=== PATIENT | female | born 1950 | race Caucasian/White ===

== ENCOUNTER → 2019-01-20 | Outpatient (CLI) | payer MEDICARE ==
--- NOTE | 2019-01-20 14:23 | RADIOLOGY REPORT (SQ) ---
EXAM DESCRIPTION: MRI CERVICAL SPINE WITHOUT COMPLETED DATE/TIME: 01/20/2019 12:08 pm REASON FOR STUDY: CERVICALGIA M54.2 CERVICALGIA COMPARISON: None. TECHNIQUE: Sagittal and Axial imaging includes T1, T2, STIR and gradient echo sequences. LIMITATIONS: None. FINDINGS: ALIGNMENT: Normal. VERTEBRAE: Intact. BONE MARROW: Normal. No marrow replacement or reactive changes. DISCS: Disc spaces are narrowed at C5-6 and C6-7 with marginal osteophytes. HARDWARE: None in the spine. CORD AND BASE OF BRAIN: Normal in size and signal intensity. SOFT TISSUES: No soft tissue masses. C1-C2: No significant spinal stenosis. C2-C3: Shallow left paracentral disc/ osteophyte complex with no central canal or foraminal stenosis. C3-C4: Very shallow left paracentral disc/ osteophyte complex with no central canal or foraminal sten osis. C4-C5: Shallow midline disc/ osteophyte complex narrows the anterior CSF space but does not deform th e spinal cord. No foraminal stenosis. C5-C6: Broad-based disc/osteophyte complex asymmetrical toward the right paracentral area. This narr ows the anterior CSF space and slightly flattens the right side of the spinal cord. No foraminal reanna nosis. C6-C7: Broad-based disc/osteophyte complex narrows the anterior CSF space. There is no foraminal reanna nosis. C7-T1: Shallow broad-based disc/osteophyte complex with no central canal or foraminal stenosis. UPPER THORACIC: Incompletely imaged. No significant spinal stenosis or exit foraminal stenosis. OTHER: No other significant finding. IMPRESSION: Disc/osteophyte complexes at multiple levels as described above. Most significant findi ng appears to be at C5-6 with there is flattening of the right side of the spinal cord. No significa nt foraminal stenosis is seen. TECHNICAL DOCUMENTATION: JOB ID: [id number] [employer]- All Rights Reserved Reading location - IP/workstation name: [email or web address]
== END ==
LOC: RAD 11:22
PROVIDERS: ATTEND Orthopaedic Surgery
DX: M54.2 Cervicalgia (principal)
CPT/HCPCS: 72141